=== PATIENT | female | born 1975 | race African-American/Black ===

== ENCOUNTER 2020-07-03 06:07 | Emergency (ER) | payer MEDICARE ==
[~2020-07-03] VITALS: Ht 167.6 cm; Wt 148.3 kg
[2020-07-03] MEDS ORDERED: DEXAMETHASONE SOD PHOS 10 MG/1 ML VIAL IV ONE (06:15)
[2020-07-03] MEDS ORDERED: LEVETIRACETAM 500MG/5ML VIAL 2,000 MG in SODIUM CHLORIDE 0.9% 100 ML 100 ML IV SCH (06:15)
[2020-07-03] MEDS ORDERED: ALBUTEROL/IPRATROPIUM 3 ML NEB NEB ONE (06:15)
[2020-07-03 06:32] LABS: BASOPHILS % 0.2 % (0.0-1.0); EOSINOPHILS # (AUTO) 0.1 (0.0-0.4); EOSINOPHILS % 1.3 % (0.0-6.0); HEMATOCRIT 36.8 % (34.2-44.1); HEMOGLOBIN 11.6 g/dL (12.0-16.0); LYMPHOCYTES # (AUTO) 2.9 (1.0-3.2); LYMPHOCYTES % 31.8 % (18.0-39.1); MEAN CORPUSCULAR HEMOGLOBIN 28.2 pg (28-32); MEAN CORPUSCULAR HGB CONC 31.5 g/dL (31-35); MEAN CORPUSCULAR VOLUME 89.5 fL (81-99); MONOCYTES # (AUTO) 0.5 (0.2-0.8); MONOCYTES % 5.5 % (4.4-11.3); NEUTROPHILS # (AUTO) 5.4 (2.1-6.9); NEUTROPHILS % 60.5 % (38.7-80.0); PLATELET COUNT 282 x10e3/uL (140-360); RED BLOOD COUNT 4.11 x10e6/uL (3.6-5.1); RED CELL DISTRIBUTION WIDTH 15.9 % (11.7-14.4)
[2020-07-03] MEDS ORDERED: DIPHENHYDRAMINE HCL ELIX 12.5 MG/5 ML UDC PO ONE (06:45)
[2020-07-03] MEDS ORDERED: ONDANSETRON HCL INJ 2MG/ML 2ML 2 MG/ML VIAL ONE (06:46)
[2020-07-03 06:51] LABS: ALANINE AMINOTRANSFERASE 14 IU/L (0-55); ALBUMIN 2.8 g/dL (3.5-5.0); ALBUMIN/GLOBULIN RATIO 0.7 (0.8-2.0); ALKALINE PHOSPHATASE 85 IU/L (40-150); BLOOD UREA NITROGEN 10 mg/dL (7-26); BUN/CREATININE RATIO 15 (6-25); CALCIUM 8.2 mg/dL (8.4-10.2); CARBON DIOXIDE 26 mmol/L (22-29); CHLORIDE 108 mmol/L (98-107); CREATININE, SERUM 0.68 mg/dL (0.57-1.11); EST GLOMERULAR FILTRATION RATE > 60 ML/MIN (60-); GLUCOSE 100 mg/dL (74-118); SODIUM 141 mmol/L (136-145)
[2020-07-03] MEDS ORDERED: DIPHENHYDRAMINE HCL ELIX 12.5 MG/5 ML UDC ONE (06:54)
[2020-07-03] MEDS ORDERED: ONDANSETRON HCL INJ 2MG/ML 2ML 2 MG/ML VIAL IV STA (07:02)
[2020-07-03] MEDS ORDERED: LEVETIRACETAM 500 MG/5 ML VIAL IV ONE (07:20)
[2020-07-03] MEDS ORDERED: SODIUM CHLORIDE 0.9% 100 ML ONE (07:21)
[2020-07-03] MEDS ORDERED: KETOROLAC TROMETHAMINE 30 MG/ML VIAL IV STA (07:33)
[2020-07-03] MEDS ORDERED: ACETAMINOPHEN 325 MG TAB PO ONE (07:45)
[2020-07-03 09:11] VITALS: BP 118/78
== END 2020-07-03 09:12 | disposition home or self-care (01) ==
LOC: ER 07:18
DX: G40.909 Epilepsy, unspecified, not intractable, without status epilepticus (principal); J44.9 Chronic obstructive pulmonary disease, unspecified; I10 Essential (primary) hypertension; E11.9 Type 2 diabetes mellitus without complications; Z86.73 Personal history of transient ischemic attack (TIA), and cerebral infarction without residual deficits
CPT/HCPCS: 36415; 71045; 80053; 83880; 84484; 85025; 96374; 96375; 99284; J1100; J1885; J1953; J2405; J7050

== ENCOUNTER 2020-10-13 00:59 | Emergency (ER) | payer OTHER ==
[~2020-10-13] VITALS: Ht 167.6 cm; Wt 148.3 kg
[2020-10-13] MEDS ORDERED: ACETAMIN/BUTALBITAL/CAFFEINE TAB PO ONE (01:45)
[2020-10-13] MEDS ORDERED: ACETAMIN/BUTALBITAL/CAFFEINE TAB ONE (01:46)
[2020-10-13] MEDS ORDERED: KEPPRA750 MG PO (01:53)
[2020-10-13] MEDS ORDERED: FIORICET 50-301 EACH PO (01:53)
== END 2020-10-13 02:19 | disposition home or self-care (01) ==
LOC: ER 01:09
DX: G40.909 Epilepsy, unspecified, not intractable, without status epilepticus (principal); T42.6X6A Underdosing of other antiepileptic and sedative-hypnotic drugs, initial encounter; Z91.128 Patient's intentional underdosing of medication regimen for other reason; I10 Essential (primary) hypertension; E11.9 Type 2 diabetes mellitus without complications; Z86.73 Personal history of transient ischemic attack (TIA), and cerebral infarction without residual deficits
CPT/HCPCS: 99283

== ENCOUNTER 2021-09-07 14:24 | Observation (INO) | payer OTHER ==
[~2021-09-07] VITALS: Ht 167.6 cm; Wt 175.5 kg
[~2021-09-07 14:24] MED LIST: ASPIRIN EC81 MG PO; AZITHROMYCIN250 MG PO; CARAFATE1 GM PO; DILANTIN100 MG PO; DULOXETINE HCL60 MG PO; FIORICET 50-301 EACH PO; GLUCOTROL10 MG PO; IPRAT-ALBUT 0.5-3 ML; KEPPRA500 MG PO; KEPPRA750 MG PO; KLONOPIN1 MG PO; LIPITOR10 MG PO; LOSARTAN-HCTZ1 EAC2 PO; MIRTAZAPINE15 MG; NYSTATIN15 G2; PANTOPRAZOLE SO40 MG PO; REXULTI0.5 MG; SPIRIVA RESPIMAT4 GM
[2021-09-07] MEDS ORDERED: SODIUM CHLORIDE 0.9% 1000ML 1,000 ML IV STA (15:02)
[2021-09-07 15:08] LABS: BASOPHILS % 0.4 % (0.0-1.0); EOSINOPHILS # (AUTO) 0.3 (0.0-0.4); EOSINOPHILS % 2.8 % (0.0-6.0); HEMATOCRIT 40.5 % (34.2-44.1); LYMPHOCYTES # (AUTO) 3.4 (1.0-3.2); LYMPHOCYTES % 33.4 % (18.0-39.1); MEAN CORPUSCULAR HGB CONC 32.1 g/dL (31-35); MEAN CORPUSCULAR VOLUME 90.4 fL (81-99); MONOCYTES # (AUTO) 0.6 (0.2-0.8); MONOCYTES % 6.2 % (4.4-11.3); NEUTROPHILS # (AUTO) 5.7 (2.1-6.9); NEUTROPHILS % 56.5 % (38.7-80.0); PLATELET COUNT 302 x10e3/uL (140-360); RED BLOOD COUNT 4.48 x10e6/uL (3.6-5.1); RED CELL DISTRIBUTION WIDTH 14.9 % (11.7-14.4)
[2021-09-07] MEDS ORDERED: ONDANSETRON HCL INJ 2MG/ML 2ML 2 MG/ML VIAL IV PRN (15:15)
[2021-09-07 15:24] LABS: ALBUMIN 2.9 g/dL (3.5-5.0); ALBUMIN/GLOBULIN RATIO 0.7 (0.8-2.0); ANION GAP 13.6 mmol/L (8-16); CALCIUM 8.2 mg/dL (8.4-10.2); CREATININE, SERUM 0.74 mg/dL (0.57-1.11); POTASSIUM 3.6 mmol/L (3.5-5.1)
[2021-09-07 15:50] LABS: CLARITY,URINE SL CLOUDY (CLEAR); COLOR,URINE YELLOW (YELLOW); KETONES,URINE 2+ (NEGATIVE); LEUKOCYTE ESTERASE ,URINE NEGATIVE (NEGATIVE); NITRITE,URINE NEGATIVE (NEGATIVE); PROTEIN,URINE DIPSTICK 1+ (NEGATIVE)
[2021-09-07 15:57] LABS: BACTERIA,URINE FEW /HPF; EPITHELIAL CELLS,URINE FEW /LPF; RBC,URINE 0-5 /HPF (0-5)
[2021-09-07] MEDS ORDERED: FENTANYL CITRATE/PF 100MCG/2 ML INJ IV PRN (16:45)
[2021-09-07] MEDS ORDERED: ONDANSETRON ODT4 MG PO (16:54)
[2021-09-07] MEDS: Morphine 4mg Syringe 4 MG/ML INJ IV PRN (18:53)
[2021-09-07 19:30] VITALS: BP 124/52
[2021-09-07 20:00] VITALS: BP 124/52
[2021-09-07 20:18] VITALS: BP 124/52
[2021-09-07] MEDS: SODIUM CHLORIDE 0.9% 1000ML 1,000 ML IV SCH (20:42)
[2021-09-07] MEDS: PHENYTOIN SODIUM EXT REL 100 MG CAP PO SCH (21:30)
[2021-09-07] MEDS ORDERED: ALBUTEROL/IPRATROPIUM 3 ML NEB NEB PRN (21:45)
[2021-09-07] MEDS ORDERED: Morphine 4mg Syringe 4 MG/ML INJ IV PRN (21:45)
[2021-09-07] MEDS: SUCRALFATE 1 GM TAB PO SCH (23:17)
[2021-09-07] MEDS: PANTOPRAZOLE SOD 40 MG TABEC PO SCH (23:17)
[2021-09-07] MEDS: ATORVASTATIN 20 MG TAB PO SCH (23:17)
[2021-09-07] MEDS: METOCLOPRAMIDE HCL 10 MG/2ML VIAL IV SCH (23:18)
[2021-09-07] MEDS: ONDANSETRON HCL INJ 2MG/ML 2ML 2 MG/ML VIAL IV PRN (23:31)
[2021-09-08] VITALS (7 sets, daily range): BP systolic 107–137; BP diastolic 45–82
[2021-09-08] MEDS: SODIUM CHLORIDE 0.9% 1000ML 1,000 ML IV SCH ×3 (01:15→17:17)
[2021-09-08] MEDS: METOCLOPRAMIDE HCL 10 MG/2ML VIAL IV SCH ×3 (05:19→17:52)
[2021-09-08 05:34] LABS: BASOPHILS % 0.4 % (0.0-1.0); EOSINOPHILS # (AUTO) 0.3 (0.0-0.4); EOSINOPHILS % 3.3 % (0.0-6.0); HEMATOCRIT 38.1 % (34.2-44.1); HEMOGLOBIN 11.9 g/dL (12.0-16.0); LYMPHOCYTES # (AUTO) 2.8 (1.0-3.2); LYMPHOCYTES % 31.1 % (18.0-39.1); MEAN CORPUSCULAR HEMOGLOBIN 28.7 pg (28-32); MEAN CORPUSCULAR HGB CONC 31.2 g/dL (31-35); MONOCYTES # (AUTO) 0.7 (0.2-0.8); NEUTROPHILS # (AUTO) 5.1 (2.1-6.9); NEUTROPHILS % 56.4 % (38.7-80.0); PLATELET COUNT 259 x10e3/uL (140-360); RED BLOOD COUNT 4.14 x10e6/uL (3.6-5.1); RED CELL DISTRIBUTION WIDTH 15.2 % (11.7-14.4)
[2021-09-08 05:55] LABS: ANION GAP 11.5 mmol/L (8-16); CALCIUM 8.3 mg/dL (8.4-10.2); CREATININE, SERUM 0.7 mg/dL (0.57-1.11); POTASSIUM 3.5 mmol/L (3.5-5.1)
[2021-09-08] MEDS ORDERED: ATORVASTATIN 20 MG TAB PO SCH (09:00)
[2021-09-08] MEDS: ONDANSETRON HCL INJ 2MG/ML 2ML 2 MG/ML VIAL IV PRN ×2 (09:59→22:59)
[2021-09-08] MEDS: PANTOPRAZOLE SOD 40 MG TABEC PO SCH ×2 (10:00→17:17)
[2021-09-08] MEDS: ASPIRIN 81 MG ENTERIC COATED PO SCH (10:00)
[2021-09-08] MEDS: SUCRALFATE 1 GM TAB PO SCH ×4 (10:00→22:53)
[2021-09-08] MEDS: Morphine 4mg Syringe 4 MG/ML INJ IV PRN ×2 (10:00→22:59)
[2021-09-08] MEDS ORDERED: XANAX1 MG PO (11:44)
[2021-09-08] MEDS ORDERED: ONDANSETRON HCL 4 MG ORAL DISINTEGRATING TAB PO PRN (12:00)
[2021-09-08] MEDS: ALPRAZOLAM 1 MG TAB PO PRN (12:21)
[2021-09-08] MEDS ORDERED: ACETAMIN/BUTALBITAL/CAFFEINE TAB PO PRN (12:30)
[2021-09-08] MEDS: ALBUTEROL/IPRATROPIUM 3 ML NEB INH SCH ×2 (13:00→19:35)
[2021-09-08] MEDS ORDERED: LEVETIRACETAM 1500 MG PO SCH (17:00)
[2021-09-08] MEDS ORDERED: LOSARTAN PO SCH (17:00)
[2021-09-08] MEDS ORDERED: HYDROCHLOROTHIAZIDE PO SCH (17:00)
[2021-09-08] MEDS ORDERED: [UNRECOGNIZED DRUG - OTHER] PO SCH (17:00)
[2021-09-08] MEDS: LOSARTAN POTASSIUM 100 MG TAB PO SCH (17:16)
[2021-09-08] MEDS: HYDROCHLOROTHIAZIDE 25 MG TAB PO SCH (17:17)
[2021-09-08] MEDS: LEVETIRACETAM 500 MG TAB PO SCH (17:17)
[2021-09-08] MEDS: NYSTATIN 15 GM POWDER UD BTL TOP SCH (17:51)
[2021-09-08] MEDS: PHENYTOIN SODIUM EXT REL 100 MG CAP PO SCH (22:54)
[2021-09-08] MEDS: ATORVASTATIN 20 MG TAB PO SCH (22:54)
[2021-09-09] VITALS: BP 138/83
[2021-09-09] MEDS: ALBUTEROL/IPRATROPIUM 3 ML NEB INH SCH ×2 (01:10→06:20)
[2021-09-09] MEDS: SODIUM CHLORIDE 0.9% 1000ML 1,000 ML IV SCH ×2 (02:24→09:15)
[2021-09-09] MEDS: ONDANSETRON HCL INJ 2MG/ML 2ML 2 MG/ML VIAL IV PRN ×2 (03:15→09:10)
[2021-09-09] MEDS: Morphine 4mg Syringe 4 MG/ML INJ IV PRN ×2 (03:15→09:10)
[2021-09-09] MEDS: ALPRAZOLAM 1 MG TAB PO PRN ×2 (03:58→09:59)
[2021-09-09 04:00] VITALS: BP 95/51
[2021-09-09 05:07] LABS: BASOPHILS % 0.3 % (0.0-1.0); EOSINOPHILS # (AUTO) 0.3 (0.0-0.4); EOSINOPHILS % 3.1 % (0.0-6.0); HEMATOCRIT 36.4 % (34.2-44.1); HEMOGLOBIN 11.5 g/dL (12.0-16.0); LYMPHOCYTES # (AUTO) 3.1 (1.0-3.2); LYMPHOCYTES % 34.9 % (18.0-39.1); MEAN CORPUSCULAR HEMOGLOBIN 29.3 pg (28-32); MEAN CORPUSCULAR HGB CONC 31.6 g/dL (31-35); MEAN CORPUSCULAR VOLUME 92.6 fL (81-99); MONOCYTES # (AUTO) 0.7 (0.2-0.8); MONOCYTES % 8.2 % (4.4-11.3); NEUTROPHILS # (AUTO) 4.7 (2.1-6.9); NEUTROPHILS % 52.7 % (38.7-80.0); PLATELET COUNT 231 x10e3/uL (140-360); RED BLOOD COUNT 3.93 x10e6/uL (3.6-5.1); RED CELL DISTRIBUTION WIDTH 15.1 % (11.7-14.4)
[2021-09-09 05:34] LABS: ANION GAP 12.4 mmol/L (8-16); BLOOD UREA NITROGEN < 5 mg/dL (7-26); CALCIUM 8.1 mg/dL (8.4-10.2); CARBON DIOXIDE 25 mmol/L (22-29); CHLORIDE 106 mmol/L (98-107); CREATININE, SERUM 0.68 mg/dL (0.57-1.11); GLUCOSE 107 mg/dL (74-118); MAGNESIUM 1.7 MG/DL (1.3-2.1); POTASSIUM 3.4 mmol/L (3.5-5.1); SODIUM 140 mmol/L (136-145)
[2021-09-09 05:39] LABS: BUN/CREATININE RATIO 7 (6-25)
[2021-09-09 06:12] LABS: PHOSPHORUS 2.7 MG/DL (2.3-4.7)
[2021-09-09] MEDS: METOCLOPRAMIDE HCL 10 MG/2ML VIAL IV SCH ×3 (06:15→12:00)
[2021-09-09 07:40] VITALS: BP 134/82
[2021-09-09 08:16] VITALS: BP 106/59
[2021-09-09] MEDS ORDERED: TIOTROPIUM 18 MCG INH POWDER INH SCH (09:00)
[2021-09-09] MEDS ORDERED: DULOXETINE HCL 30 MG DELAYED RELEASE PO SCH (09:00)
[2021-09-09] MEDS ORDERED: DULOXETINE HCL 90 MG PO SCH (09:00)
[2021-09-09] MEDS: SUCRALFATE 1 GM TAB PO SCH ×2 (09:11→12:45)
[2021-09-09] MEDS: ASPIRIN 81 MG ENTERIC COATED PO SCH (09:11)
[2021-09-09] MEDS: LOSARTAN POTASSIUM 100 MG TAB PO SCH (09:12)
[2021-09-09] MEDS: NYSTATIN 15 GM POWDER UD BTL TOP SCH (09:12)
[2021-09-09] MEDS: LEVETIRACETAM 500 MG TAB PO SCH (09:12)
[2021-09-09] MEDS: HYDROCHLOROTHIAZIDE 25 MG TAB PO SCH (09:12)
[2021-09-09] MEDS: PANTOPRAZOLE SOD 40 MG TABEC PO SCH (09:12)
[2021-09-09 11:32] VITALS: BP 105/45
[2021-09-09] MEDS ORDERED: POTASSIUM CHLORIDE 10MEQ EA PO ONE (12:15)
[2021-09-09] MEDS ORDERED: METOCLOPRAMIDE HCL 10 MG TAB PO SCH (13:30)
== END 2021-09-09 13:00 | disposition home or self-care (01) ==
LOC: ER 14:59 → ERHOLD 17:09 → MED/SURG 19:59
PROVIDERS: ADMIT Internal Medicine; ATTEND Internal Medicine
DX: G89.18 Other acute postprocedural pain (principal); R11.2 Nausea with vomiting, unspecified; Z98.84 Bariatric surgery status; I10 Essential (primary) hypertension; E11.9 Type 2 diabetes mellitus without complications; Z86.73 Personal history of transient ischemic attack (TIA), and cerebral infarction without residual deficits; K21.9 Gastro-esophageal reflux disease without esophagitis; Z88.0 Allergy status to penicillin; Z91.041 Radiographic dye allergy status; E66.01 Morbid (severe) obesity due to excess calories; Z82.49 Family history of ischemic heart disease and other diseases of the circulatory system; J44.9 Chronic obstructive pulmonary disease, unspecified; G40.909 Epilepsy, unspecified, not intractable, without status epilepticus; Z68.44 Body mass index [BMI] 60.0-69.9, adult; Z90.49 Acquired absence of other specified parts of digestive tract; Z90.3 Acquired absence of stomach [part of]; Z20.822 Contact with and (suspected) exposure to COVID-19; Z79.82 Long term (current) use of aspirin
CPT/HCPCS: 36415 ×3; 74176; 80048 ×2; 80053; 81001; 82948 ×3; 83690; 83735; 84100; 84484; 84702; 85025 ×3; 93005; 94640 ×2; 94799 ×3; 99284; G0378 ×3; J2270 ×3; J2405 ×3; J2765 ×3; J3010; J7030 ×2; S0164 ×3; U0002

== ENCOUNTER 2021-10-17 18:23 | Emergency (ER) | payer OTHER ==
[~2021-10-17] VITALS: Ht 320 cm; Wt 175.5 kg
[~2021-10-17 18:23] MED LIST changes: +ONDANSETRON ODT4 MG PO; +XANAX1 MG PO
[2021-10-17] MEDS ORDERED: SODIUM CHLORIDE 0.9% 1000ML 1,000 ML IV ONE (18:45)
[2021-10-17] MEDS ORDERED: ONDANSETRON HCL INJ 2MG/ML 2ML 2 MG/ML VIAL IV STA (18:45)
[2021-10-17] MEDS ORDERED: DIATRIZOATE MEGL/DIATRIZOA SOD 30 ML BTL PO ONE (19:08)
[2021-10-17 20:20] LABS: BASOPHILS % 0.3 % (0.0-1.0); EOSINOPHILS # (AUTO) 0.1 (0.0-0.4); EOSINOPHILS % 1.3 % (0.0-6.0); HEMOGLOBIN 13.7 g/dL (12.0-16.0); LYMPHOCYTES # (AUTO) 3.6 (1.0-3.2); LYMPHOCYTES % 38.2 % (18.0-39.1); MEAN CORPUSCULAR HEMOGLOBIN 28.8 pg (28-32); MEAN CORPUSCULAR HGB CONC 31.9 g/dL (31-35); MEAN CORPUSCULAR VOLUME 90.3 fL (81-99); MONOCYTES # (AUTO) 0.6 (0.2-0.8); MONOCYTES % 6.3 % (4.4-11.3); NEUTROPHILS # (AUTO) 5.1 (2.1-6.9); NEUTROPHILS % 53.5 % (38.7-80.0); PLATELET COUNT 255 x10e3/uL (140-360); RED BLOOD COUNT 4.76 x10e6/uL (3.6-5.1); RED CELL DISTRIBUTION WIDTH 14.6 % (11.7-14.4)
[2021-10-17 20:31] LABS: ALBUMIN/GLOBULIN RATIO 0.7 (0.8-2.0); ANION GAP 15.6 mmol/L (8-16); CALCIUM 8.9 mg/dL (8.4-10.2); CREATININE, SERUM 0.71 mg/dL (0.57-1.11); POTASSIUM 3.6 mmol/L (3.5-5.1)
== END 2021-10-17 23:10 | disposition home or self-care (01) ==
LOC: ER 18:39
DX: R10.9 Unspecified abdominal pain (principal); Z98.84 Bariatric surgery status; Z90.49 Acquired absence of other specified parts of digestive tract; R11.0 Nausea; I10 Essential (primary) hypertension; E11.9 Type 2 diabetes mellitus without complications; Z86.73 Personal history of transient ischemic attack (TIA), and cerebral infarction without residual deficits; G40.909 Epilepsy, unspecified, not intractable, without status epilepticus; E78.5 Hyperlipidemia, unspecified; F41.9 Anxiety disorder, unspecified; Z88.0 Allergy status to penicillin; Z91.041 Radiographic dye allergy status; Z79.82 Long term (current) use of aspirin
CPT/HCPCS: 36415; 74176; 80053; 83690; 84484; 84702; 85025; 93005; 99284; J2405; J7030

== ENCOUNTER 2022-02-04 07:46 | Inpatient (IN) | payer OTHER ==
[~2022-02-04] VITALS: Ht 167.6 cm; Wt 158.8 kg
[2022-02-04] MEDS ORDERED: SODIUM CHLORIDE 0.9% 1000ML 1,000 ML IV STA (07:47)
[2022-02-04] MEDS ORDERED: ACETAMINOPHEN 325 MG TAB PO STA (07:59)
[2022-02-04] MEDS ORDERED: ALBUTEROL/IPRATROPIUM 3 ML NEB NEB STA ×2 (08:07→08:59)
[2022-02-04 08:17] LABS: BASOPHILS % 0.3 % (0.0-1.0); EOSINOPHILS % 0.3 % (0.0-6.0); HEMOGLOBIN 11.8 g/dL (12.0-16.0); LYMPHOCYTES # (AUTO) 0.8 (1.0-3.2); LYMPHOCYTES % 11.9 % (18.0-39.1); MEAN CORPUSCULAR HEMOGLOBIN 28.9 pg (28-32); MEAN CORPUSCULAR HGB CONC 31.1 g/dL (31-35); MEAN CORPUSCULAR VOLUME 92.9 fL (81-99); MONOCYTES # (AUTO) 0.6 (0.2-0.8); MONOCYTES % 8.7 % (4.4-11.3); NEUTROPHILS # (AUTO) 5.5 (2.1-6.9); NEUTROPHILS % 78.2 % (38.7-80.0); PLATELET COUNT 205 x10e3/uL (140-360); RED BLOOD COUNT 4.09 x10e6/uL (3.6-5.1); RED CELL DISTRIBUTION WIDTH 16.4 % (11.7-14.4)
[2022-02-04] MEDS ORDERED: ONDANSETRON HCL INJ 2MG/ML 2ML 2 MG/ML VIAL IV STA (08:36)
[2022-02-04] MEDS ORDERED: ONDANSETRON HCL INJ 2MG/ML 2ML 2 MG/ML VIAL ONE (08:47)
[2022-02-04 08:48] LABS: ALBUMIN/GLOBULIN RATIO 0.7 (0.8-2.0); CALCIUM 8.8 mg/dL (8.4-10.2); CREATININE, SERUM 0.75 mg/dL (0.57-1.11)
[2022-02-04] MEDS: METHYLPREDNISOLONE SOD SUCC 40 MG/ML VIAL 1ML IV SCH ×3 (08:50→16:33)
[2022-02-04] MEDS: LEVOFLOXACIN 750MG/D5W 150ML 150 ML IV SCH (08:50)
[2022-02-04 09:12] LABS: CREATINE KINASE MB 1.8 ng/mL (0-5.0)
[2022-02-04 15:06] VITALS: BP 138/85
[2022-02-04] MEDS ORDERED: FUROSEMIDE INJ 10 MG/ML 2 ML VIAL IV ONE (16:30)
[2022-02-04 17:19] VITALS: BP 138/85
[2022-02-04 18:13] LABS: CREATINE KINASE MB 2.6 ng/mL (0-5.0)
[2022-02-04] MEDS ORDERED: IBUPROFEN200 MG PO (18:18)
[2022-02-04] MEDS ORDERED: OMEPRAZOLE40 MG PO (18:18)
[2022-02-04] MEDS ORDERED: ULTRAM 50MG50 MG PO (18:18)
[2022-02-04] MEDS ORDERED: CLONAZEPAM1 MG PO (18:18)
[2022-02-04] MEDS ORDERED: METFORMIN HCL850 MG PO (18:20)
[2022-02-04] MEDS ORDERED: MELOXICAM7.5 MG PO (18:20)
[2022-02-04 19:06] LABS: ABG HCO3 27 mmol/L (22-26); ABG PCO2 46 mmHg (35-45); ABG PH 7.37 (7.35-7.45); ABG PO2 61 mmHg (80-105); ABG TCO2 28
[2022-02-04] MEDS: ALBUTEROL/IPRATROPIUM 3 ML NEB NEB SCH ×2 (19:30→23:00)
[2022-02-04 20:00] VITALS: BP 125/58
[2022-02-04 21:00] VITALS: BP 138/85
[2022-02-04] MEDS ORDERED: ONDANSETRON HCL INJ 2MG/ML 2ML 2 MG/ML VIAL IV PRN (21:00)
[2022-02-04] MEDS ORDERED: ACETAMINOPHEN 325 MG TAB PO PRN (21:00)
[2022-02-04] MEDS ORDERED: ACETAMIN/BUTALBITAL/CAFFEINE TAB PO ONE (21:00)
[2022-02-04] MEDS ORDERED: POLYETHYLENE GLYCOL 3350 17 GM PACK PO PRN (21:00)
[2022-02-04] MEDS ORDERED: METOPROLOL TARTRATE INJ 1 MG/ML VIAL IV PRN (21:00)
[2022-02-04] MEDS: SUCRALFATE 1 GM TAB PO SCH (21:58)
[2022-02-05] VITALS (7 sets, daily range): BP systolic 114–132; BP diastolic 66–82
[2022-02-05] MEDS ORDERED: GUAIFENESIN 200 MG/10 ML UDC PO PRN
[2022-02-05] MEDS: METHYLPREDNISOLONE SOD SUCC 40 MG/ML VIAL 1ML IV SCH ×4 (00:54→17:25)
[2022-02-05] MEDS: DIPHENHYDRAMINE HCL 25 MG CAP PO PRN (02:16)
[2022-02-05 02:28] LABS: CLARITY,URINE CLEAR (CLEAR); COLOR,URINE YELLOW (YELLOW); KETONES,URINE NEGATIVE (NEGATIVE); LEUKOCYTE ESTERASE ,URINE NEGATIVE (NEGATIVE); NITRITE,URINE NEGATIVE (NEGATIVE); PROTEIN,URINE DIPSTICK NEGATIVE (NEGATIVE); URINE UROBILINOGEN 1 mg/dL (0.2 - 1)
[2022-02-05 02:31] LABS: BACTERIA,URINE FEW /HPF; EPITHELIAL CELLS,URINE FEW /LPF; RBC,URINE 0-5 /HPF (0-5); WBC,URINE (MAN) 0-5 /HPF (0-5)
[2022-02-05] MEDS: ALBUTEROL/IPRATROPIUM 3 ML NEB NEB SCH ×6 (03:00→23:00)
[2022-02-05 04:52] LABS: BASOPHILS % 0.2 % (0.0-1.0); EOSINOPHILS % 0.2 % (0.0-6.0); HEMATOCRIT 36.1 % (34.2-44.1); HEMOGLOBIN 11.2 g/dL (12.0-16.0); LYMPHOCYTES # (AUTO) 0.6 (1.0-3.2); LYMPHOCYTES % 12.3 % (18.0-39.1); MEAN CORPUSCULAR HEMOGLOBIN 28.9 pg (28-32); MEAN CORPUSCULAR VOLUME 93.3 fL (81-99); MONOCYTES # (AUTO) 0.5 (0.2-0.8); MONOCYTES % 9.9 % (4.4-11.3); NEUTROPHILS # (AUTO) 3.9 (2.1-6.9); NEUTROPHILS % 76.6 % (38.7-80.0); PLATELET COUNT 211 x10e3/uL (140-360); RED BLOOD COUNT 3.87 x10e6/uL (3.6-5.1); RED CELL DISTRIBUTION WIDTH 16.5 % (11.7-14.4)
[2022-02-05 05:12] LABS: ALBUMIN 2.8 g/dL (3.5-5.0); ALBUMIN/GLOBULIN RATIO 0.7 (0.8-2.0); ANION GAP 12.2 mmol/L (8-16); CALCIUM 9.1 mg/dL (8.4-10.2); CREATININE, SERUM 0.75 mg/dL (0.57-1.11); POTASSIUM 4.2 mmol/L (3.5-5.1)
[2022-02-05 05:24] LABS: MAGNESIUM 1.6 MG/DL (1.3-2.1); PHOSPHORUS 2.4 MG/DL (2.3-4.7)
[2022-02-05 05:32] LABS: CREATINE KINASE 618 IU/L (29-168)
[2022-02-05 05:49] LABS: FREE THYROXINE INDEX 1.8015 (1.4-3.8); THYROID STIMULATING HORMONE 0.058 uIU/mL (0.350-4.940)
[2022-02-05] MEDS ORDERED: SODIUM CHLORIDE 0.9% 250ML 250 ML ONE (07:44)
[2022-02-05] MEDS: LEVOFLOXACIN 750MG/D5W 150ML 150 ML IV SCH (08:13)
[2022-02-05] MEDS: MELOXICAM 7.5 MG TAB PO SCH (08:15)
[2022-02-05] MEDS: METFORMIN HCL 500 MG TAB PO SCH ×2 (08:15→16:31)
[2022-02-05] MEDS: DULOXETINE HCL 30 MG DELAYED RELEASE PO SCH ×2 (08:15→16:30)
[2022-02-05] MEDS: CLONAZEPAM 1 MG TAB PO SCH ×2 (08:16→16:32)
[2022-02-05] MEDS: TRAMADOL HCL 50 MG TAB PO SCH ×2 (08:16→16:30)
[2022-02-05] MEDS: ATORVASTATIN 20 MG TAB PO SCH (08:17)
[2022-02-05] MEDS: SUCRALFATE 1 GM TAB PO SCH ×4 (08:17→21:55)
[2022-02-05] MEDS: FUROSEMIDE INJ 10 MG/ML 4 ML VIAL IV SCH (08:17)
[2022-02-05] MEDS: PANTOPRAZOLE SOD 40 MG TABEC PO SCH ×2 (08:17→16:32)
[2022-02-05] MEDS ORDERED: MAGNESIUM SULFATE 2GM/50ML 50 ML IV ONE (08:30)
[2022-02-05] MEDS ORDERED: LEVETIRACETAM 500 MG TAB PO SCH (09:00)
[2022-02-05] MEDS ORDERED: PANTOPRAZOLE SOD 40 MG TABEC PO SCH (09:00)
[2022-02-05] MEDS: NYSTATIN 15 GM POWDER UD BTL TOP SCH ×2 (09:00→17:00)
[2022-02-05] MEDS ORDERED: LOSARTAN HCTZ PO SCH (09:00)
[2022-02-05] MEDS: HOME MEDICATION--PATIENTS OWN PO SCH ×2 (09:00→16:33)
[2022-02-05] MEDS: LEVETIRACETAM 500 MG TAB PO SCH ×2 (10:13→21:55)
[2022-02-05] MEDS: DOCUSATE SODIUM 100 MG CAP PO SCH ×2 (10:16→16:30)
[2022-02-05] MEDS ORDERED: ACETAMINOPHEN/CODEINE 300MG - 30MG TAB PO PRN (11:30)
[2022-02-05] MEDS: Morphine 2mg Syringe 2 MG/ML SYR IV PRN ×2 (12:03→17:25)
[2022-02-05] MEDS: LOSARTAN POTASSIUM 100 MG TAB PO SCH (16:30)
[2022-02-05] MEDS: HYDROCHLOROTHIAZIDE 25 MG TAB PO SCH (16:31)
[2022-02-05] MEDS: TEMAZEPAM 15 MG CAP PO PRN (21:54)
[2022-02-05] MEDS: PHENYTOIN SODIUM EXT REL 100 MG CAP PO SCH (21:55)
[2022-02-05] MEDS: ACETAMIN/BUTALBITAL/CAFFEINE TAB PO PRN (21:55)
[2022-02-06] VITALS (8 sets, daily range): BP systolic 124–151; BP diastolic 64–91
[2022-02-06] MEDS: METHYLPREDNISOLONE SOD SUCC 40 MG/ML VIAL 1ML IV SCH ×3 (00:41→22:08)
[2022-02-06] MEDS: DIPHENHYDRAMINE HCL 25 MG CAP PO PRN (00:41)
[2022-02-06] MEDS: ALBUTEROL/IPRATROPIUM 3 ML NEB NEB SCH ×7 (03:00→23:20)
[2022-02-06 05:04] LABS: BASOPHILS % 0.1 % (0.0-1.0); HEMATOCRIT 35.3 % (34.2-44.1); HEMOGLOBIN 11.4 g/dL (12.0-16.0); LYMPHOCYTES # (AUTO) 1.4 (1.0-3.2); LYMPHOCYTES % 14.5 % (18.0-39.1); MEAN CORPUSCULAR HEMOGLOBIN 29.2 pg (28-32); MEAN CORPUSCULAR HGB CONC 32.3 g/dL (31-35); MEAN CORPUSCULAR VOLUME 90.3 fL (81-99); MONOCYTES # (AUTO) 0.7 (0.2-0.8); MONOCYTES % 7.4 % (4.4-11.3); NEUTROPHILS # (AUTO) 7.3 (2.1-6.9); NEUTROPHILS % 77.2 % (38.7-80.0); PLATELET COUNT 242 x10e3/uL (140-360); RED BLOOD COUNT 3.91 x10e6/uL (3.6-5.1); RED CELL DISTRIBUTION WIDTH 16.6 % (11.7-14.4)
[2022-02-06 05:23] LABS: ANION GAP 14.5 mmol/L (8-16); CALCIUM 9.2 mg/dL (8.4-10.2); CREATININE, SERUM 0.74 mg/dL (0.57-1.11); MAGNESIUM 1.8 MG/DL (1.3-2.1); POTASSIUM 4.5 mmol/L (3.5-5.1)
[2022-02-06] MEDS: SUCRALFATE 1 GM TAB PO SCH ×4 (07:37→20:26)
[2022-02-06] MEDS: Morphine 2mg Syringe 2 MG/ML SYR IV PRN (07:54)
[2022-02-06] MEDS: ONDANSETRON HCL 4 MG ORAL DISINTEGRATING TAB PO PRN (07:54)
[2022-02-06] MEDS: NYSTATIN 15 GM POWDER UD BTL TOP SCH ×2 (09:00→17:00)
[2022-02-06] MEDS: HOME MEDICATION--PATIENTS OWN PO SCH ×2 (09:00→17:00)
[2022-02-06] MEDS: LEVOFLOXACIN 750MG/D5W 150ML 150 ML IV SCH (10:44)
[2022-02-06] MEDS: PANTOPRAZOLE SOD 40 MG TABEC PO SCH ×2 (10:44→17:41)
[2022-02-06] MEDS: TRAMADOL HCL 50 MG TAB PO SCH ×2 (10:45→17:42)
[2022-02-06] MEDS: FUROSEMIDE INJ 10 MG/ML 4 ML VIAL IV SCH (10:45)
[2022-02-06] MEDS: DULOXETINE HCL 30 MG DELAYED RELEASE PO SCH ×2 (10:45→17:41)
[2022-02-06] MEDS: MELOXICAM 7.5 MG TAB PO SCH (10:45)
[2022-02-06] MEDS: DOCUSATE SODIUM 100 MG CAP PO SCH ×2 (10:45→17:41)
[2022-02-06] MEDS: ATORVASTATIN 20 MG TAB PO SCH (10:46)
[2022-02-06] MEDS: LEVETIRACETAM 500 MG TAB PO SCH ×2 (10:46→20:27)
[2022-02-06] MEDS: HYDROCHLOROTHIAZIDE 25 MG TAB PO SCH (10:46)
[2022-02-06] MEDS: CLONAZEPAM 1 MG TAB PO SCH ×2 (10:46→20:27)
[2022-02-06] MEDS: LOSARTAN POTASSIUM 100 MG TAB PO SCH (10:47)
[2022-02-06] MEDS: METFORMIN HCL 500 MG TAB PO SCH ×2 (10:53→17:41)
[2022-02-06] MEDS ORDERED: HYDRALAZINE HCL 20 MG/ML VIAL IV PRN (11:45)
[2022-02-06] MEDS: Morphine 2mg Syringe 2 MG/ML SYR IM PRN ×2 (15:45→20:26)
[2022-02-06] MEDS: TEMAZEPAM 15 MG CAP PO PRN (20:27)
[2022-02-06] MEDS: PHENYTOIN SODIUM EXT REL 100 MG CAP PO SCH (20:27)
[2022-02-07] VITALS (8 sets, daily range): BP systolic 118–143; BP diastolic 57–97
[2022-02-07 06:32] LABS: BASOPHILS % 0.1 % (0.0-1.0); HEMATOCRIT 35.2 % (34.2-44.1); HEMOGLOBIN 11.3 g/dL (12.0-16.0); LYMPHOCYTES # (AUTO) 1.9 (1.0-3.2); LYMPHOCYTES % 20.3 % (18.0-39.1); MEAN CORPUSCULAR HEMOGLOBIN 28.9 pg (28-32); MEAN CORPUSCULAR HGB CONC 32.1 g/dL (31-35); MONOCYTES # (AUTO) 0.6 (0.2-0.8); MONOCYTES % 6.7 % (4.4-11.3); NEUTROPHILS # (AUTO) 6.7 (2.1-6.9); NEUTROPHILS % 72.2 % (38.7-80.0); PLATELET COUNT 231 x10e3/uL (140-360); RED BLOOD COUNT 3.91 x10e6/uL (3.6-5.1); RED CELL DISTRIBUTION WIDTH 16.3 % (11.7-14.4)
[2022-02-07] MEDS: ALBUTEROL/IPRATROPIUM 3 ML NEB NEB SCH ×5 (06:48→23:20)
[2022-02-07 07:03] LABS: ANION GAP 16.2 mmol/L (8-16); CALCIUM 9.2 mg/dL (8.4-10.2); CREATININE, SERUM 0.76 mg/dL (0.57-1.11); MAGNESIUM 1.5 MG/DL (1.3-2.1); PHOSPHORUS 3.6 MG/DL (2.3-4.7); POTASSIUM 4.2 mmol/L (3.5-5.1)
[2022-02-07] MEDS ORDERED: MAGNESIUM SULF 1GRAM/DEXTROSE 100 ML IV ONE (08:30)
[2022-02-07] MEDS ORDERED: MAGNESIUM SULFATE 2GM/50ML 50 ML IV ONE (09:30)
[2022-02-07] MEDS: LEVOFLOXACIN 750MG/D5W 150ML 150 ML IV SCH (09:32)
[2022-02-07] MEDS: METHYLPREDNISOLONE SOD SUCC 40 MG/ML VIAL 1ML IV SCH (09:35)
[2022-02-07] MEDS: MELOXICAM 7.5 MG TAB PO SCH (09:35)
[2022-02-07] MEDS: FUROSEMIDE INJ 10 MG/ML 4 ML VIAL IV SCH (09:35)
[2022-02-07] MEDS: HYDROCHLOROTHIAZIDE 25 MG TAB PO SCH (09:36)
[2022-02-07] MEDS: METFORMIN HCL 500 MG TAB PO SCH ×2 (09:36→16:54)
[2022-02-07] MEDS: SUCRALFATE 1 GM TAB PO SCH ×4 (09:37→20:58)
[2022-02-07] MEDS: LOSARTAN POTASSIUM 100 MG TAB PO SCH (09:37)
[2022-02-07] MEDS: LEVETIRACETAM 500 MG TAB PO SCH ×2 (09:37→20:50)
[2022-02-07] MEDS: ATORVASTATIN 20 MG TAB PO SCH (09:37)
[2022-02-07] MEDS: DULOXETINE HCL 30 MG DELAYED RELEASE PO SCH ×2 (09:37→16:54)
[2022-02-07] MEDS: HOME MEDICATION--PATIENTS OWN PO SCH ×2 (09:38→16:55)
[2022-02-07] MEDS: DOCUSATE SODIUM 100 MG CAP PO SCH ×2 (09:38→16:54)
[2022-02-07] MEDS: PANTOPRAZOLE SOD 40 MG TABEC PO SCH ×2 (09:38→16:54)
[2022-02-07] MEDS: NYSTATIN 15 GM POWDER UD BTL TOP SCH ×2 (09:38→17:00)
[2022-02-07] MEDS: CLONAZEPAM 1 MG TAB PO SCH (09:38)
[2022-02-07] MEDS: Morphine 2mg Syringe 2 MG/ML SYR IM PRN ×2 (09:48→20:51)
[2022-02-07] MEDS: HYDROCODONE/APAP 10MG-325MG TAB PO PRN (12:07)
[2022-02-07] MEDS: PHENYTOIN SODIUM EXT REL 100 MG CAP PO SCH (20:50)
[2022-02-07] MEDS: TEMAZEPAM 15 MG CAP PO PRN (20:50)
[2022-02-08 00:58] VITALS: BP 120/78
[2022-02-08] MEDS: CLONAZEPAM 1 MG TAB PO SCH ×2 (04:04→08:48)
[2022-02-08 05:12] LABS: BASOPHILS % 0.2 % (0.0-1.0); EOSINOPHILS % 0.1 % (0.0-6.0); HEMATOCRIT 37.5 % (34.2-44.1); LYMPHOCYTES # (AUTO) 4.3 (1.0-3.2); LYMPHOCYTES % 45.7 % (18.0-39.1); MEAN CORPUSCULAR HEMOGLOBIN 29.1 pg (28-32); MONOCYTES # (AUTO) 0.9 (0.2-0.8); MONOCYTES % 9.7 % (4.4-11.3); NEUTROPHILS # (AUTO) 4.1 (2.1-6.9); NEUTROPHILS % 43.8 % (38.7-80.0); PLATELET COUNT 235 x10e3/uL (140-360); RED BLOOD COUNT 4.12 x10e6/uL (3.6-5.1); RED CELL DISTRIBUTION WIDTH 15.1 % (11.7-14.4)
[2022-02-08 05:20] VITALS: BP 105/66
[2022-02-08 05:29] LABS: ANION GAP 13.3 mmol/L (8-16); CALCIUM 8.7 mg/dL (8.4-10.2); CREATININE, SERUM 0.75 mg/dL (0.57-1.11); MAGNESIUM 1.6 MG/DL (1.3-2.1); PHOSPHORUS 3.1 MG/DL (2.3-4.7); POTASSIUM 3.3 mmol/L (3.5-5.1)
[2022-02-08] MEDS: ALBUTEROL/IPRATROPIUM 3 ML NEB NEB SCH ×3 (06:49→15:00)
[2022-02-08 07:32] VITALS: BP 120/70
[2022-02-08 08:00] VITALS: BP 120/70
[2022-02-08] MEDS: HYDROCODONE/APAP 10MG-325MG TAB PO PRN (08:44)
[2022-02-08] MEDS: METFORMIN HCL 500 MG TAB PO SCH (08:46)
[2022-02-08] MEDS: LEVOFLOXACIN 750MG/D5W 150ML 150 ML IV SCH (08:46)
[2022-02-08] MEDS: DOCUSATE SODIUM 100 MG CAP PO SCH (08:46)
[2022-02-08] MEDS: LOSARTAN POTASSIUM 100 MG TAB PO SCH (08:47)
[2022-02-08] MEDS: MELOXICAM 7.5 MG TAB PO SCH (08:47)
[2022-02-08] MEDS: SUCRALFATE 1 GM TAB PO SCH ×2 (08:47→11:30)
[2022-02-08] MEDS: DULOXETINE HCL 30 MG DELAYED RELEASE PO SCH (08:47)
[2022-02-08] MEDS: LEVETIRACETAM 500 MG TAB PO SCH (08:48)
[2022-02-08] MEDS: ATORVASTATIN 20 MG TAB PO SCH (08:48)
[2022-02-08] MEDS: HYDROCHLOROTHIAZIDE 25 MG TAB PO SCH (08:48)
[2022-02-08] MEDS: PANTOPRAZOLE SOD 40 MG TABEC PO SCH (08:49)
[2022-02-08] MEDS: HOME MEDICATION--PATIENTS OWN PO SCH (08:49)
[2022-02-08] MEDS: FUROSEMIDE INJ 10 MG/ML 4 ML VIAL IV SCH (08:49)
[2022-02-08] MEDS: NYSTATIN 15 GM POWDER UD BTL TOP SCH (08:50)
[2022-02-08] MEDS ORDERED: NICOTINE 21 MG/EA PATCH TOP SCH (09:00)
[2022-02-08] MEDS ORDERED: PREDNISONE 20 MG TAB PO SCH (09:00)
[2022-02-08] MEDS ORDERED: POTASSIUM CHLORIDE 20 MEQ TAB CR PO ONE (09:45)
[2022-02-08] MEDS ORDERED: MAGNESIUM SULFATE 2GM/50ML 50 ML IV ONE (09:45)
[2022-02-08] MEDS ORDERED: MAGNESIUM SULF 1GRAM/DEXTROSE 100 ML IV ONE (09:45)
[2022-02-08] MEDS: ONDANSETRON HCL 4 MG ORAL DISINTEGRATING TAB PO PRN (11:14)
[2022-02-08 11:18] LABS: BAND NEUTROPHILS % (MANUAL) 2 %; LYMPHOCYTES % (MANUAL) 41 % (19-48); MONOCYTES % (MANUAL) 13 % (3.4-9.0)
[2022-02-08 11:19] LABS: NEUTROPHILS % (MANUAL) 40 % (40-74); PLATELET ESTIMATE ADEQUATE; PLATELET MORPHOLOGY COMMENT NORMAL
[2022-02-08] MEDS ORDERED: Morphine 2mg Syringe 2 MG/ML SYR IV PRN (11:30)
[2022-02-08 12:23] VITALS: BP 107/80
[2022-02-08] MEDS: ACETAMIN/BUTALBITAL/CAFFEINE TAB PO PRN (13:56)
[2022-02-08] MEDS ORDERED: GUAIFENESI100 MG/5 M PO (14:35)
[2022-02-08] MEDS ORDERED: LEVOFLOXACIN250 MG PO (14:35)
[2022-02-08] MEDS ORDERED: ACETAMINOPHEN325 M1 PO (14:35)
[2022-02-08] MEDS ORDERED: NICODERM CQ1 EAC2 TOP (14:35)
[2022-02-08] MEDS ORDERED: Acetamin/Butalbital/Caffeine PO (14:35)
[2022-02-08] MEDS ORDERED: ONDANSETRON ODT4 MG PO (14:35)
[2022-02-08] MEDS ORDERED: HYDROCODON-ACE1 EAC9 PO (14:35)
[2022-02-08] MEDS ORDERED: PREDNISONE5 MG PO (14:35)
[2022-02-08] MEDS ORDERED: Docusate Sodium PO (14:35)
[2022-02-08] MEDS ORDERED: ENOXAPARIN SOD INJ 40 MG/0.4 ML SYR SC SCH (17:00)
== END 2022-02-08 16:05 | disposition home or self-care (01) | DRG 190 ==
LOC: ER 07:48 → ERHOLD 09:58 → MED/SURG2 14:40
PROVIDERS: ADMIT Internal Medicine; ATTEND Internal Medicine
PROC: 05HY33Z Insertion of Infusion Device into Upper Vein, Percutaneous Approach (ICD-10-PCS; principal; 2022-02-04)
DX: J44.0 Chronic obstructive pulmonary disease with (acute) lower respiratory infection (principal); J18.9 Pneumonia, unspecified organism; Z68.43 Body mass index [BMI] 50.0-59.9, adult; J45.901 Unspecified asthma with (acute) exacerbation; J44.1 Chronic obstructive pulmonary disease with (acute) exacerbation; E66.01 Morbid (severe) obesity due to excess calories; E78.5 Hyperlipidemia, unspecified; E11.69 Type 2 diabetes mellitus with other specified complication; Z86.73 Personal history of transient ischemic attack (TIA), and cerebral infarction without residual deficits; F41.9 Anxiety disorder, unspecified; M19.91 Primary osteoarthritis, unspecified site; F17.210 Nicotine dependence, cigarettes, uncomplicated; Z98.84 Bariatric surgery status; K21.9 Gastro-esophageal reflux disease without esophagitis; G43.909 Migraine, unspecified, not intractable, without status migrainosus; R00.1 Bradycardia, unspecified; E83.42 Hypomagnesemia; Z20.822 Contact with and (suspected) exposure to COVID-19; F20.9 Schizophrenia, unspecified; F31.9 Bipolar disorder, unspecified; Z88.0 Allergy status to penicillin; E11.65 Type 2 diabetes mellitus with hyperglycemia
CPT/HCPCS: 36415; 36568; 71045; 71046; 74018; 80048; 80053; 81001; 82550; 82553; 82805; 82948; 83605; 83735; 83880; 84100; 84436; 84443; 84479; 84484; 85025; 87040; 87400; 93005; 93306; 94640; 94799; 99284; J1940; J2270; J2405; J2920; J3475; J7030; J7050; J7512; Q0162

== ENCOUNTER 2024-08-12 13:10 | Emergency (ER) | payer OTHER ==
[~2024-08-12] VITALS: Ht 167.6 cm; Wt 170.1 kg
[~2024-08-12 13:10] MED LIST changes: +ACETAMINOPHEN325 M1 PO; +Acetamin/Butalbital/Caffeine PO; +CLONAZEPAM1 MG PO; +Docusate Sodium PO; +GUAIFENESI100 MG/5 M PO; +HYDROCODON-ACE1 EAC9 PO; +IBUPROFEN200 MG PO; +LEVOFLOXACIN250 MG PO; +MEDROL4 M2 PO; +MELOXICAM7.5 MG PO; +METFORMIN HCL850 MG PO; +NICODERM CQ1 EAC2 TOP; +OMEPRAZOLE40 MG PO; +PREDNISONE5 MG PO; +ULTRAM 50MG50 MG PO
[2024-08-12 13:16] VITALS: PULSE 71; RESP 16; TEMP 98.9; O2SAT 100
[2024-08-12] MEDS ORDERED: ONDANSETRON ODT4 MG PO (13:42)
[2024-08-12] MEDS ORDERED: DICYCLOMINE HCL20 MG PO (13:42)
== END 2024-08-12 13:50 | disposition home or self-care (01) ==
LOC: ER 13:42
DX: R11.2 Nausea with vomiting, unspecified (principal); R19.7 Diarrhea, unspecified; I10 Essential (primary) hypertension; E11.9 Type 2 diabetes mellitus without complications; J44.9 Chronic obstructive pulmonary disease, unspecified; G40.909 Epilepsy, unspecified, not intractable, without status epilepticus; E78.5 Hyperlipidemia, unspecified; F41.9 Anxiety disorder, unspecified; F25.9 Schizoaffective disorder, unspecified; M54.9 Dorsalgia, unspecified; G89.29 Other chronic pain; Z86.73 Personal history of transient ischemic attack (TIA), and cerebral infarction without residual deficits
CPT/HCPCS: 99282